=== PATIENT | female | born 1990 | race African-American/Black ===

== ENCOUNTER 2018-07-28 12:30 | Day surgery (SDC) | payer OTHER ==
[2018-07-28] MEDS ORDERED: DIPRIVAN 200 MG/20 ML IV ONE (12:31)
[2018-07-28] MEDS ORDERED: Ketamine HCl 50 MG/ML IV ONE (12:31)
[2018-07-28] MEDS ORDERED: Lactated Ringers 1,000 ML IV ONE (12:31)
[2018-07-28] MEDS ORDERED: Sodium Chloride 0.9(Preservative Free) 10 ML IJ ONE (12:31)
[2018-07-28] MEDS ORDERED: Xylocaine 1% Vial 30 ML PF IJ ONE (12:31)
[2018-07-28] MEDS ORDERED: Depo-Medrol 40 MG/ML IM ONE (12:31)
--- NOTE | 2018-07-28 15:02 | XRAY ---
Indication: L4-L5 RODRIGO. Intraoperative fluoroscopy was provided for 13 seconds. 2 digital spot images submitted for interpretation demonstrates a midline posterior needle tip projecting approximately L4-L5 interspace level. Correlate with intraoperative findings/report.
--- NOTE | 2018-07-28 15:37 | XRAY ---
13 seconds of fluoroscopy was used in surgery for L4-5 RODRIGO.
== END 2018-07-28 14:44 | disposition home or self-care (01) ==
LOC: SDC-PAIN 12:30 → CLIN -PAIN 12:30
PROVIDERS: ATTEND Psychiatry & Neurology Pain Medicine
DX: M54.16 Radiculopathy, lumbar region (principal); J44.9 Chronic obstructive pulmonary disease, unspecified; M79.7 Fibromyalgia
CPT/HCPCS: 20611; 72020; 77003; 84703; J1030; J2001; J2704; Q9966

== ENCOUNTER 2019-11-09 09:50 | Day surgery (SDC) | payer OTHER ==
[2019-11-09] MEDS ORDERED: Xylocaine 1% Vial 30 ML PF IJ ONE (09:51)
[2019-11-09] MEDS ORDERED: Depo-Medrol 40 MG/ML IM ONE (09:51)
[2019-11-09] MEDS ORDERED: Marcaine 0.5% SDV 10 ML IJ ONE (09:51)
[2019-11-09] MEDS ORDERED: Ketamine HCl 50 MG/ML ONE (10:50)
[2019-11-09] MEDS ORDERED: DIPRIVAN 200 MG/20 ML IV ONE (10:50)
[2019-11-09] MEDS ORDERED: Lactated Ringers 1,000 ML IV ONE (12:35)
--- NOTE | 2019-11-09 14:07 | XRAY ---
Indication: Right hip injection. Intraoperative fluoroscopy was provided for 57 seconds. 2 digital spot images submitted for interpretation demonstrates needle tip just lateral to the right femur head and a second needle tip lateral to the greater trochanter. Small amount of contrast injected for both needle tip placement. Correlate with intraoperative findings/report.
--- NOTE | 2019-11-09 14:12 | XRAY ---
57 seconds fluoroscopy time in surgery for right hip injections.
== END 2019-11-09 11:22 | disposition home or self-care (01) ==
LOC: SDC-PAIN 09:50
PROVIDERS: ATTEND Psychiatry & Neurology Pain Medicine
DX: M70.61 Trochanteric bursitis, right hip (principal); M16.11 Unilateral primary osteoarthritis, right hip; J44.9 Chronic obstructive pulmonary disease, unspecified; M34.9 Systemic sclerosis, unspecified; F41.8 Other specified anxiety disorders; M79.7 Fibromyalgia; K21.9 Gastro-esophageal reflux disease without esophagitis; D89.89 Other specified disorders involving the immune mechanism, not elsewhere classified; Z79.899 Other long term (current) drug therapy
CPT/HCPCS: 20610; 73502; 77002; 84703; J1030; J2001; J2704; Q9966

== ENCOUNTER 2021-07-17 09:48 | Day surgery (SDC) | payer OTHER ==
[2021-07-17] MEDS ORDERED: BUPIVACAINE 0.5% VIAL IJ ONE (09:49)
[2021-07-17] MEDS ORDERED: Depo-Medrol 40 MG/ML IM ONE (09:49)
[2021-07-17] MEDS ORDERED: DIPRIVAN 200 MG/20 ML IV ONE ×2 (12:45→12:58)
[2021-07-17] MEDS ORDERED: Lactated Ringers 1,000 ML IV ONE (13:21)
--- NOTE | 2021-07-17 16:17 | XRAY ---
Indication: Bilateral hip injection. Intraoperative fluoroscopy provided for 54 seconds. 2 digital spot images submitted for interpretation demonstrates needle tip just lateral to the left and right femur necks. Small amount of contrast injected for both needle tip placement. Correlate with intraoperative findings/report.
--- NOTE | 2021-07-17 16:23 | XRAY ---
54 seconds fluoroscopy time in surgery for bilateral greater trochanter injections.
== END 2021-07-17 13:20 | disposition home or self-care (01) ==
LOC: SDC-PAIN 09:48
PROVIDERS: ATTEND Psychiatry & Neurology Pain Medicine
DX: M16.0 Bilateral primary osteoarthritis of hip (principal); M70.62 Trochanteric bursitis, left hip; M70.61 Trochanteric bursitis, right hip; J44.9 Chronic obstructive pulmonary disease, unspecified; Z79.899 Other long term (current) drug therapy
CPT/HCPCS: 20610; 73522; 77002; 84703; J1030; J2704; Q9966

== ENCOUNTER 2022-11-05 10:17 | Day surgery (SDC) | payer OTHER ==
[2022-11-05] MEDS ORDERED: Depo-Medrol 40 MG/ML IM ONE (10:18)
[2022-11-05] MEDS ORDERED: BUPIVACAINE 0.5% VIAL IJ ONE (10:18)
[2022-11-05 11:08] LABS: HCG URINE TEST NEGATIVE (NEGATIVE)
[2022-11-05] MEDS ORDERED: DIPRIVAN 200 MG/20 ML IV ONE (12:28)
[2022-11-05] MEDS ORDERED: Xylocaine-Mpf 2% 5 Ml Vial ONE (12:35)
--- NOTE | 2022-11-05 14:57 | XRAY ---
Indication: Bilateral hip and bilateral greater trochanter bursa injection. Intraoperative fluoroscopy provided for 49 seconds. 4 digital spot image submitted for interpretation demonstrates needle tips projecting lateral to the left/right femur necks and left/right greater trochanters. Small amount of contrast injected for all needle tip placement. Correlate with intraoperative findings/report.
[2022-11-05] MEDS ORDERED: Lactated Ringers 1,000 ML IV ONE (15:19)
== END 2022-11-05 13:10 | disposition home or self-care (01) ==
LOC: SDC-PAIN 10:17
PROVIDERS: ATTEND Psychiatry & Neurology Pain Medicine
DX: M16.0 Bilateral primary osteoarthritis of hip (principal); M70.62 Trochanteric bursitis, left hip; M70.61 Trochanteric bursitis, right hip; E16.2 Hypoglycemia, unspecified; Z79.899 Other long term (current) drug therapy
CPT/HCPCS: 20610; 73522; 77002; 81025; 82947; J1030; J2704; Q9966

== ENCOUNTER 2023-04-22 08:34 | Day surgery (SDC) | payer OTHER ==
[2023-04-22] MEDS ORDERED: LIDOCAINE HCL 2% 100 MG/5 ML IJ ONE (08:35)
[2023-04-22 08:55] LABS: HCG URINE TEST NEGATIVE (NEGATIVE)
[2023-04-22] MEDS ORDERED: Versed 2 MG/2 ML Injection ONE (09:45)
[2023-04-22] MEDS ORDERED: DIPRIVAN 200 MG/20 ML IV ONE ×2 (09:45→09:51)
[2023-04-22] MEDS ORDERED: Lactated Ringers 1,000 ML IV ONE (10:54)
--- NOTE | 2023-04-22 11:24 | XRAY ---
Indication: Left C2-C4 MBB. Intraoperative fluoroscopy provided for 30 seconds. 3 digital spot images submitted for interpretation demonstrates posterior needle tips projecting over the expected left C2-C4 nerve roots. Correlate with intraoperative findings/report.
--- NOTE | 2023-04-22 11:28 | XRAY ---
30 seconds of fluoroscopy was used in surgery for a left C2-C4 MBB.
== END 2023-04-22 10:12 | disposition home or self-care (01) ==
LOC: SDC-PAIN 08:34
PROVIDERS: ATTEND Psychiatry & Neurology Pain Medicine
DX: M47.812 Spondylosis without myelopathy or radiculopathy, cervical region (principal)
CPT/HCPCS: 64490; 64491; 72040; 77002; 81025; J2250; J2704

== ENCOUNTER 2023-05-21 08:22 | Day surgery (SDC) | payer OTHER ==
[2023-05-21] MEDS ORDERED: BUPIVACAINE 0.5% VIAL IJ ONE (08:23)
[2023-05-21 08:31] LABS: HCG URINE TEST NEGATIVE (NEGATIVE)
[2023-05-21] MEDS ORDERED: DIPRIVAN 200 MG/20 ML IV ONE (09:37)
--- NOTE | 2023-05-21 10:59 | XRAY ---
Indication: Left C2-C4 MBB. Intraoperative fluoroscopy provided for 26 seconds. 2 digital spot image submitted for interpretation demonstrates posterior needle tips projecting over the expected left C2-C4 nerve roots. Correlate with intraoperative findings/report.
--- NOTE | 2023-05-21 13:06 | XRAY ---
26 seconds of fluoroscopy was used in surgery for a left C2-C4 MBB.
[2023-05-21] MEDS ORDERED: Lactated Ringers 1,000 ML IV ONE (16:13)
== END 2023-05-21 10:12 | disposition home or self-care (01) ==
LOC: SDC-PAIN 08:22
PROVIDERS: ATTEND Psychiatry & Neurology Pain Medicine
DX: M47.812 Spondylosis without myelopathy or radiculopathy, cervical region (principal); Z79.899 Other long term (current) drug therapy
CPT/HCPCS: 64490; 64491; 72040; 77002; 81025; J2704

== ENCOUNTER 2023-07-01 08:44 | Day surgery (SDC) | payer OTHER ==
[2023-07-01] MEDS ORDERED: XYLOCAINE-MPF 1% 5ML SDV IJ ONE (08:45)
[2023-07-01] MEDS ORDERED: Decadron 4 MG INJ IV ONE (08:45)
[2023-07-01] MEDS ORDERED: BUPIVACAINE 0.5% VIAL IJ ONE (08:45)
[2023-07-01 09:29] LABS: HCG URINE TEST NEGATIVE (NEGATIVE)
[2023-07-01] MEDS ORDERED: DIPRIVAN 200 MG/20 ML IV ONE ×2 (10:52→11:07)
[2023-07-01] MEDS ORDERED: Versed 2 MG/2 ML Injection ONE (10:53)
--- NOTE | 2023-07-01 12:04 | XRAY ---
Indication: Left C2-C4 RFA. Intraoperative fluoroscopy provided for 34 seconds. 2 digital spot image submitted for interpretation demonstrates posterior needle tips projecting over the expected left C2-C4 nerve roots. Correlate with intraoperative findings/report.
--- NOTE | 2023-07-01 12:08 | XRAY ---
34 seconds of fluoroscopy was used in surgery for a left C2-C4 RFA.
[2023-07-01] MEDS ORDERED: Lactated Ringers 1,000 ML IV ONE (14:21)
== END 2023-07-01 11:40 | disposition home or self-care (01) ==
LOC: SDC-PAIN 08:44
PROVIDERS: ATTEND Psychiatry & Neurology Pain Medicine
DX: M47.812 Spondylosis without myelopathy or radiculopathy, cervical region (principal)
CPT/HCPCS: 64633; 64634; 72040; 77002; 81025; J1100; J2250; J2704

== ENCOUNTER 2025-04-19 06:40 | Day surgery (SDC) | payer OTHER ==
[2025-04-19] MEDS ORDERED: BUPIVACAINE 0.5% VIAL IJ ONE (06:41)
[2025-04-19] MEDS ORDERED: LIDOCAINE HCL 1% 50 MG/5 ML VL IJ ONE (06:41)
[2025-04-19 07:22] LABS: HCG URINE TEST NEGATIVE (NEGATIVE)
[2025-04-19] MEDS ORDERED: propofoL IV ONE ×2 (08:15→08:25)
--- NOTE | 2025-04-19 10:20 | XRAY ---
Indication: Left C2-C4 RFA. Intraoperative fluoroscopy provided for 27 seconds. 2 digital spot images submitted for interpretation demonstrates posterior needle tips projecting over expected left C2-C4 nerve roots. Correlate with intraoperative findings/report.
[2025-04-19] MEDS ORDERED: Lactated Ringers 1,000 ML IV ONE (11:25)
--- NOTE | 2025-04-19 12:00 | XRAY ---
27 seconds of fluoroscopy was used in surgery for a left C2-C4 RFA.
== END 2025-04-19 09:10 | disposition home or self-care (01) ==
LOC: SDC-PAIN 06:40
PROVIDERS: ATTEND Psychiatry & Neurology Pain Medicine
DX: M47.812 Spondylosis without myelopathy or radiculopathy, cervical region (principal); E16.2 Hypoglycemia, unspecified